=== PATIENT | male | born 1970 | race Caucasian/White ===

== ENCOUNTER 2022-02-23 13:35 | Outpatient (CLI) | payer OTHER ==
--- NOTE | 2022-02-23 17:10 | MRI Report ---
PROCEDURE: Shoulder LT W/O INDICATIONS: PAIN IN LEFT SHOULDER TECHNIQUE: Noncontrast oblique coronal T2 fast spin echo with fat saturation, oblique sagittal T1 spin echo and T2 fast spin echo with fat saturation, axial T1 spin echo and T2 fast spin echo with fat saturation t hrough the shoulder. COMPARISON: None. FINDINGS: Image quality: Excellent. Rotator cuff: Mild T2 signal elevation throughout the supraspinatus and infraspinatus tendons at the humeral insertion sites extending to the muscular tendinous junction, indicating tendinopathy. Low-g rade partial-thickness intrasubstance tearing of the posterior per spinatus tendon at the muscular te ndinous junction. 7 mm focus of low T2 signal intensity within the posterior infraspinatus tendon at the humeral insertion site. Subscapularis and teres minor tendons are intact. The supraspinatus, infr aspinatus, and subscapularis tendons otherwise appear intact throughout. No rotator cuff muscle atro phy on sagittal images. Bones and bursae: There is moderate ill-defined T2 signal elevation within the humeral head. Moderate acromioclavicular joint degeneration. The acromion demonstrates conventional anatomy, without an os acromiale. No pathologic subacromial/subdeltoid bursal fluid is present. Capsule and soft tissues: In the absence of intra-articular contrast, the labrum and glenohumeral li gaments appear intact. The long head of the biceps tendon demonstrates normal location and morpholog y. The rotator interval appears normal, without fibrosis. The coracohumeral ligament is normal in t hickness. IMPRESSION: 1. Degenerative marrow edema versus contusion within the humeral head. 2. Supraspinatus and intraspinous tendinopathy. Superimposed low-grade partial thickness tearing of t he infraspinatus. No full-thickness rotator cuff tear. 3. Calcific tendinitis of the infraspinatus tendon. 4. Acromioclavicular joint osteoarthritis. Reviewed by: Alysa Soto MD on 02/23/2022 4:09 PM [email or web address] Approved by: Alysa Soto MD on 02/23/2022 4:09 PM [id number] Station ID: [id number]
== END 2022-02-23 13:36 | disposition home or self-care (01) ==
LOC: DI 13:35
PROVIDERS: ATTEND Student in an Organized Health Care Education/Training Program
DX: M75.112 Incomplete rotator cuff tear or rupture of left shoulder, not specified as traumatic (principal); M75.32 Calcific tendinitis of left shoulder; M19.012 Primary osteoarthritis, left shoulder; R93.6 Abnormal findings on diagnostic imaging of limbs